=== PATIENT | female | born 1965 | race Caucasian/White ===

== ENCOUNTER → 2022-07-12 10:47 | Outpatient (CLI) | payer OTHER, SELFPAY ==
[2022-07-12 12:15] LABS: Free T4, Direct Thyroxine 0.68 ng/dL (0.78-2.19)
[2022-07-12 12:29] LABS: Thyroid Stimulating Hormone 5.21 uIU/mL (0.47-4.68)
== END ==
PROVIDERS: PCP Registered Nurse Diabetes Educator; Referring Provider Nurse Practitioner Family; Visit Provider Nurse Practitioner Family
DX: E03.9 Hypothyroidism, unspecified (principal)
CPT/HCPCS: 36415; 84439; 84443

== ENCOUNTER → 2022-08-09 09:57 | Outpatient (CLI) | payer OTHER, SELFPAY ==
[2022-08-09 11:21] LABS: Free T4, Direct Thyroxine 0.59 ng/dL (0.78-2.19)
[2022-08-09 11:35] LABS: Thyroid Stimulating Hormone 2.22 uIU/mL (0.47-4.68)
== END ==
PROVIDERS: Referring Provider Nurse Practitioner Family; Visit Provider Nurse Practitioner Family
DX: E03.9 Hypothyroidism, unspecified (principal)
CPT/HCPCS: 36415; 84439; 84443

== ENCOUNTER → 2022-09-24 10:33 | Outpatient (CLI) | payer OTHER, SELFPAY ==
[2022-09-24 11:54] LABS: Free T4, Direct Thyroxine 0.66 ng/dL (0.78-2.19)
[2022-09-24 12:08] LABS: Thyroid Stimulating Hormone 1.72 uIU/mL (0.47-4.68)
== END ==
PROVIDERS: PCP Registered Nurse Diabetes Educator; Referring Provider Nurse Practitioner Family; Visit Provider Nurse Practitioner Family
DX: E03.9 Hypothyroidism, unspecified (principal)
CPT/HCPCS: 36415; 84439; 84443

== ENCOUNTER → 2022-10-25 10:35 | Outpatient (CLI) | payer OTHER, SELFPAY ==
[2022-10-25 13:36] LABS: Free T4, Direct Thyroxine 0.64 ng/dL (0.78-2.19)
[2022-10-25 13:50] LABS: Thyroid Stimulating Hormone 1.66 uIU/mL (0.47-4.68)
== END ==
PROVIDERS: PCP Registered Nurse Diabetes Educator; Referring Provider Nurse Practitioner Family; Visit Provider Nurse Practitioner Family
DX: E03.9 Hypothyroidism, unspecified (principal); R79.89 Other specified abnormal findings of blood chemistry
CPT/HCPCS: 36415; 84439; 84443

== ENCOUNTER → 2023-02-14 09:42 | Outpatient (CLI) | payer OTHER, SELFPAY ==
--- NOTE | 2023-02-14 09:43 | DI.RAD.S_ITS ---
PROCEDURE: XR KNEE RT 3V INDICATIONS: eval R knee pain TECHNIQUE: 3 views of the knee were acquired. COMPARISON: None. FINDINGS: Bones: No fractures or dislocations. Moderate tricompartmental osteoarthritis is seen more notably in lateral femoral tibial compartment with joint space narrowing, subchondral sclerosis and prominent marginal osteophyte formation. No patellar subluxation. No suspicious bony lesions. Soft tissues: Small suprapatella joint effusion. No suspicious soft tissue calcifications. IMPRESSION: Moderate tricompartmental osteoarthritis and small joint effusion. No fracture or dislocation. Dictated by: Antolin Valle M.D. on 02/14/2023 at 11:21 Approved by: Antolin Valle M.D. on 02/14/2023 at 11:26
== END ==
PROVIDERS: PCP Registered Nurse Diabetes Educator; Referring Provider Registered Nurse Diabetes Educator; Visit Provider Registered Nurse Diabetes Educator
DX: M25.561 Pain in right knee (principal); G89.29 Other chronic pain; M17.11 Unilateral primary osteoarthritis, right knee; M25.461 Effusion, right knee
CPT/HCPCS: 73562

== ENCOUNTER → 2023-07-01 16:19 | Outpatient (CLI) | payer OTHER, SELFPAY ==
--- NOTE | 2023-07-01 16:20 | DI.MRI.S_ITS ---
PROCEDURE: MR ANGIO NECK W CON INDICATIONS: Pulsatile tinnitus, right ear TECHNIQUE: Axial and sagittal TruFISP through the neck. Coronal dynamic MRA after the administration of contrast in the arterial and venous phases, with rotating 3-dimensional maximum intensity projection (MIP) reformats constructed from subtraction images. COMPARISON: [facility], , MR ANGIO HEAD WO CON, 07/01/2023, 17:05. FINDINGS: Image quality: This examination is limited by involuntary motion artifact. Carotid system: Great vessels demonstrate a conventional anatomy as they arise from the aortic arch. The origins of the common carotid arteries appear normal. The calibers and courses of the common carotid arteries are likewise normal. The carotid bifurcations appear normal bilaterally. The internal carotid arteries are widely patent up to the [place]. Posterior circulation: The origins of the vertebral arteries are unremarkable. The more superior portions of the vertebral arteries demonstrate normal course and caliber. Vertebral arteries join to form a normal appearing basilar artery. Miscellaneous: Subclavian arteries are patent throughout. Pre-contrast images through the neck demonstrate no soft tissue abnormalities. IMPRESSION: Normal neck MR angiogram, without a cause of right-sided pulsatile tinnitus identified. Any quantitative measurements of stenosis were performed using NASCET criteria. Dictated by: Wally Cabral M.D. on 07/04/2023 at 10:59 Approved by: Wally Cabral M.D. on 07/04/2023 at 11:00
--- NOTE | 2023-07-01 16:20 | DI.MRI.S_ITS ---
PROCEDURE: MR ANGIO HEAD WO CON INDICATIONS: Pulsatile tinnitus, right ear TECHNIQUE: Noncontrast axial 3-D [id number] MR angiogram, with 3-dimensional maximum intensity projection (MIP) reformats of the internal carotid arteries and posterior circulation then performed. COMPARISON: [facility], , MR ANGIO NECK W CON, 07/01/2023, 17:20. FINDINGS: Image quality: Excellent. Anterior circulation: Intracranial internal carotid arteries demonstrate normal size and intraluminal flow signal. The flow within the paired anterior cerebral arteries is normal and symmetric. The flow within the middle cerebral arteries is normal and symmetric. The anterior communicating artery is seen. No stenoses, occlusions, or aneurysms. Posterior circulation: Visualized portions of the vertebral arteries demonstrate normal caliber, and join to form a normal appearing basilar artery. There is a prominent left posterior communicating artery seen, with an accompanying diminutive left P1 segment. This is attributed to a type origin of the right posterior cerebral artery, which is considered to be a normal developmental variant of typically no clinical consequence. The flow within the posterior cerebral arteries is normal and symmetric. No aneurysms are seen. In this patient with this given history, scrutiny is given to vascular loops posteriorly. There is an arterial branch seen adjacent to the left internal auditory canal, as on series 5, image 80. IMPRESSION: No imaging explanation is found for this patient's presenting symptoms. There is an arterial branch can be seen adjacent to the LEFT internal auditory canal, which is considered to be an incidental finding in this patient with a presenting history of pulsatile RIGHT tinnitus. Dictated by: Wally Cabral M.D. on 07/04/2023 at 10:57 Approved by: Wally Cabral M.D. on 07/04/2023 at 10:59
== END ==
PROVIDERS: PCP Registered Nurse Diabetes Educator; Referring Provider Otolaryngology; Visit Provider Otolaryngology
DX: H93.A1 Pulsatile tinnitus, right ear (principal)
CPT/HCPCS: 70544; 70548; A9579

== ENCOUNTER → 2023-11-09 17:23 | Outpatient (CLI) | payer OTHER, SELFPAY ==
[2023-11-09 17:56] LABS: Add Manual Diff / Slide Review NO; Basophils Absolute Auto 200 /uL (0-100); Basophils Percent Auto 3.9 % (0-2); Eosinophils Absolute Auto 200 /uL (0-450); Hemoglobin 14.2 g/dL (12.0-16.0); Lymphocytes Absolute Auto 1400 /uL (1100-4500); Lymphocytes Percent Auto 32.3 % (25-40); Mean Corpuscular HGB Conc 33.8 % (30-36); Mean Corpuscular Volume 91.7 fL (80-100); Monocytes Absolute Auto 600 /uL (0-900); Monocytes Percent Auto 12.4 % (3-14); Neutrophils Absolute Auto 2100 /uL (1500-7000); Neutrophils Percent Auto 47.4 % (50-75); Platelet Count 288 X10^3/uL (150-400); Red Blood Cell Count 4.58 X10^6/uL (4.0-5.2); Red Cell Distribution Width 13.6 % (11.6-14.8); White Blood Cell Count 4.4 X10^3/uL (4.5-11.0)
[2023-11-09 18:20] LABS: Alanine Aminotransferase 86 IU/L (<35); Albumin 4.5 g/dL (3.5-5.0); Albumin Globulin Ratio 1.5 (1.0-2.8); Alkaline Phosphatase 60 U/L (38-126); Aspartate Aminotransferase 33 IU/L (14-36); BUN Creatinine Ratio 22.6 (6-22); Bilirubin Total 0.4 mg/dL (0.2-1.3); Blood Urea Nitrogen 21 mg/dL (7-17); Calcium 9.9 mg/dL (8.4-10.2); Carbon Dioxide 29 mmol/L (22-32); Chloride 106 mmol/L (98-107); Estimated Glomerular Filt Rate > 60 mL/min (>60); Globulin 3.1 g/dL (1.7-4.1); Glucose 94 mg/dL (80-110); HEMOLYSIS < 15 (0-50); Lipase 96 U/L (23-300); Potassium 4.9 mmol/L (3.4-5.1); Sodium 139 mmol/L (137-145); Total Protein 7.6 g/dL (6.3-8.2)
[2023-11-09 19:05] LABS: Appearance Urine UA CLEAR; Bilirubin Urine UA NEGATIVE (NEGATIVE); Color Urine UA YELLOW; Glucose Urine UA NEGATIVE (Negative); Ketones Urine UA NEGATIVE (NEGATIVE); Leukocyte Esterase Urine UA 1+ (NEGATIVE); Nitrite Urine UA NEGATIVE (Negative); Occult Blood Urine UA NEGATIVE (Negative); Protein Urine UA NEGATIVE (Negative); Specific Gravity Urine UA <=1.005 (1.000-1.035); Urobilinogen Urine UA 0.2 E.U./dL (0.2)
[2023-11-09 19:16] LABS: Bacteria Urine Occasional (0-1); Culture Indicated Urine Specimen Cultured; RBC Urine None Seen (0-5/HPF); Squamous Epithelial Cell Urine None Seen (0-5/HPF); Urine Volume 10mL (spun); WBC Urine 0-1/HPF (0-5/HPF)
[2023-11-09 20:23] LABS: Amylase 62 U/L (30-110)
== END ==
PROVIDERS: PCP Registered Nurse Diabetes Educator; Referring Provider Registered Nurse Diabetes Educator; Visit Provider Registered Nurse Diabetes Educator
DX: R10.11 Right upper quadrant pain (principal); R11.10 Vomiting, unspecified
CPT/HCPCS: 36415; 80053; 81001; 82150; 83690; 85025; 87086

== ENCOUNTER → 2023-11-18 07:14 | Outpatient (CLI) | payer OTHER, SELFPAY ==
--- NOTE | 2023-11-18 07:15 | DI.US.S_ITS ---
PROCEDURE: US ABDOMEN LIMITED INDICATIONS: eval RUQ pain TECHNIQUE: Real-time scanning was performed of the abdominal and retroperitoneal organs, with image documentation. COMPARISON: None. FINDINGS: Liver: Liver is normal in size and homogeneous in echotexture. Gallbladder: There is no gallstone. No gallbladder wall thickening or pericholecystic fluid. No sonographic Cardenas sign. Biliary ducts: Intrahepatic bile ducts are non-dilated. Extrahepatic bile duct caliber measures 2 mm. Normal is 6-7 mm or less in diameter, or 10 mm or less post-cholecystectomy. Pancreas: Visualized portions of the pancreas are sonographically normal. Miscellaneous: No free abdominal fluid. IMPRESSION: Unremarkable ultrasound examination of right upper quadrant abdomen. Dictated by: Antolin Valel M.D. on 11/18/2023 at 10:19 Approved by: Antolin Valle M.D. on 11/18/2023 at 10:20
== END ==
LOC: US 07:15
PROVIDERS: PCP Registered Nurse Diabetes Educator; Referring Provider Registered Nurse Diabetes Educator; Visit Provider Registered Nurse Diabetes Educator
DX: R10.11 Right upper quadrant pain (principal); R11.10 Vomiting, unspecified
CPT/HCPCS: 76705

== ENCOUNTER → 2023-12-26 12:42 | Outpatient (CLI) | payer OTHER, SELFPAY ==
[2023-12-26 13:56] LABS: Alanine Aminotransferase 20 IU/L (<35); Albumin 4.4 g/dL (3.5-5.0); Albumin Globulin Ratio 1.8 (1.0-2.8); Alkaline Phosphatase 55 U/L (38-126); Aspartate Aminotransferase 21 IU/L (14-36); Bilirubin Total 0.6 mg/dL (0.2-1.3); Bilirubin Unconjugated 0.2 mg/dL (0.0-1.1); Globulin 2.4 g/dL (1.7-4.1); HEMOLYSIS < 15 (0-50); Total Protein 6.8 g/dL (6.3-8.2)
== END ==
PROVIDERS: PCP Registered Nurse Diabetes Educator; Referring Provider Registered Nurse Diabetes Educator; Visit Provider Registered Nurse Diabetes Educator
DX: R74.8 Abnormal levels of other serum enzymes (principal)
CPT/HCPCS: 36415; 80076

== ENCOUNTER → 2024-05-14 09:25 | Outpatient (CLI) | payer OTHER, SELFPAY ==
--- NOTE | 2024-05-14 09:26 | DI.RAD.S_ITS ---
PROCEDURE: XR THORACIC SPINE 3V INDICATIONS: eval chronic neck and upper back pain with paresthesia BUE TECHNIQUE: 3 views of the thoracic spine were acquired. COMPARISON: None. FINDINGS: Bones: Mild vertebral body height loss of T7. Multilevel degenerative disc disease. Soft tissues: No paravertebral stripe thickening. IMPRESSION: Mild vertebral body height loss of T7, which could represent a chronic compression deformity or age related vertebral body height loss. Mild, multilevel degenerative disc disease. Dictated by: Juan A Torres M.D. on 05/14/2024 at 11:22 Approved by: Juan A Torres M.D. on 05/14/2024 at 11:23
--- NOTE | 2024-05-14 09:26 | DI.RAD.S_ITS ---
PROCEDURE: XR CERVICAL SPINE 4V OR 5V INDICATIONS: eval chronic neck and upper back pain with paresthesia BUE TECHNIQUE: 5 views of the cervical spine acquired. COMPARISON: None. FINDINGS: Bones: No fractures or dislocations to the T1 level. Moderate stenosis of the bilateral neural foraminal at C5-6. Moderate disc height loss at C5-6. Mild disc height loss at remaining levels. Soft tissues: No prevertebral soft tissue swelling. IMPRESSION: Moderate degenerative disc disease at C5-6, resulting in moderate bilateral neural foraminal narrowing. Dictated by: Juan A Torres M.D. on 05/14/2024 at 11:21 Approved by: Juan A Torres M.D. on 05/14/2024 at 11:22
== END ==
PROVIDERS: PCP Registered Nurse Diabetes Educator; Referring Provider Registered Nurse Diabetes Educator; Visit Provider Registered Nurse Diabetes Educator
DX: M51.34 Other intervertebral disc degeneration, thoracic region (principal); M50.122 Cervical disc disorder at C5-C6 level with radiculopathy; M48.02 Spinal stenosis, cervical region; M54.9 Dorsalgia, unspecified; G89.29 Other chronic pain
CPT/HCPCS: 72050; 72072

== ENCOUNTER → 2024-06-01 12:16 | Outpatient (CLI) | payer OTHER, SELFPAY ==
--- NOTE | 2024-06-01 12:17 | DI.MRI.S_ITS ---
PROCEDURE: MR THORACIC SPINE WO CON INDICATIONS: eval chronic neck and upper back pain TECHNIQUE: Noncontrast sagittal T1 spine echo and T2 fast spin echo, sagittal STIR, and T2 fast spin echo through the thoracic spine. COMPARISON: [facility], CR, XR THORACIC SPINE 3V, 05/14/2024, 9:30. FINDINGS: Image quality: Excellent. Alignment and Curvature: Mild dextrocurvature. Bone Marrow: Multilevel degenerative endplate changes. Marrow is of normal overall signal. No acute vertebral body compression fractures. Spinal Cord: Small syrinx versus prominent central canal involving the lower thoracic cord spanning T10 through T12 measuring up to 3 x 2 mm in maximal transverse dimension. Visualized spinal cord is otherwise normal in size and signal. Paraspinous Soft Tissues: No paravertebral masses. Miscellaneous: Multilevel disc desiccation height loss with minimal posterior disc bulges. On axial images, central canal and foramina appear widely patent at all scanned levels. IMPRESSION: 1. Mild degenerative changes without significant central canal or neural foraminal stenosis. 2. Small syrinx versus prominent central canal involving the lower thoracic cord spanning T10 through T12 measuring up to 3.2 mm in maximal transverse dimension. Dictated by: Uriel Navarro M.D. on 06/01/2024 at 19:23 Approved by: Uriel Navarro M.D. on 06/01/2024 at 19:34
--- NOTE | 2024-06-01 12:17 | DI.RAD.S_ITS ---
PROCEDURE: XR DEXA AXIAL SKELETON INDICATIONS: eval, postmenopausal estrogen deficiency, compression fx COMPARISON: None. FINDINGS: Lumbar Spine: Bone mineral density 1.036 g/cm2, T score -0.1 Left Femoral Neck: Bone mineral density 0.721 g/cm2, T score -1.1 Left Hip: Bone mineral density 0.88 g/cm2, T score -0.5. Fracture Risk Calculation (when applicable): 10-year fracture risk of a major osteoporotic fracture 13 percent and of a hip fracture 0.8 percent. (T score greater or equal to -1.0 to: NORMAL) (T score from -1.1 to -2.4: OSTEOPENIA) (T score less than or equal to -2.5: OSTEOPOROSIS) IMPRESSION: Minimal osteopenia in the left femoral neck. Follow-up guidelines as follows: Osteoporosis: Consider a repeat DEXA and Vertebral Fracture Assessment (VFA) exam in 2 years or sooner if medically necessary, to reassess this patient's status. Osteopenia: Consider a repeat DEXA in 2-3 years to reassess this patient's status, or if there is a new clinical indication. Normal: Consider a repeat DEXA in 5 years or sooner, or if there is a new clinical indication. All treatment decisions require clinical judgment and consideration of individual patient factors, including patient preferences, comorbidities, previous drug use, risk factors not captured in the FRAX model (e.g., frailty, falls, vitamin D deficiency, increased bone turnover, interval significant decline in bone density ) and possible under- or over-estimation of fracture risk by FRAX. In addition, the NOF Guide recommends that FDA-approved medical therapies be considered in postmenopausal women and men age >= 50 years with a: * Hip or vertebral (clinical or morphometric) fracture * T-score of <=-2.5 at the spine or hip * Ten-year fracture probability by FRAX of >= 3% for hip fracture or >=20% for major osteoporotic fracture. Dictated by: Geovanna Wills M.D. on 06/02/2024 at 17:26 Approved by: Geovanna Wills M.D. on 06/02/2024 at 17:27
--- NOTE | 2024-06-01 12:17 | DI.MRI.S_ITS ---
PROCEDURE: MR CERVICAL SPINE WO CON INDICATIONS: eval chronic neck and upper back pain TECHNIQUE: Noncontrast sagittal T1 spin echo and T2 fast spin echo, sagittal STIR, foraminal oblique sagittal T2 fast spin echo, and axial gradient echo or T2 fast spin echo through the cervical spine. COMPARISON: None. FINDINGS: Image quality: Excellent. Alignment and Curvature: Straightening of the normal cervical lordosis. Bone Marrow: Mild degenerative endplate changes at C6-C7. Marrow demonstrates normal overall signal. Spinal Cord: Visualized spinal cord has normal size and signal. No cerebellar tonsillar herniation. Paraspinous Soft Tissues: No paravertebral masses. Prevertebral soft tissues are normal in thickness. C2-C3: Normal appearance. C3-C4: Mild disc desiccation and posterior disc osteophyte complex. No significant central canal or neural foraminal stenosis. C4-C5: Mild disc desiccation and posterior disc osteophyte complex. Facet and uncovertebral arthropathy. No central canal stenosis. Mild right and no left neural foraminal stenosis. C5-C6: Disc desiccation. Mild facet and uncovertebral arthropathy. No significant central canal or neural foraminal stenosis. C6-C7: Disc desiccation and moderate height loss. Minimal posterior disc osteophyte complex. Facet uncovertebral arthropathy. No central canal stenosis. Severe bilateral neural foraminal stenosis. C7-T1: No central canal or neural foraminal stenosis. IMPRESSION: 1. Multilevel degenerative changes of the cervical spine, most pronounced at C6-C7. 2. No significant central canal stenosis throughout. 3. Severe bilateral neural foraminal stenosis at C6-C7. Dictated by: Uriel Navarro M.D. on 06/01/2024 at 20:33 Approved by: Uriel Navarro M.D. on 06/01/2024 at 20:45
== END ==
PROVIDERS: PCP Registered Nurse Diabetes Educator; Referring Provider Registered Nurse Diabetes Educator; Visit Provider Registered Nurse Diabetes Educator
DX: S22.000A Wedge compression fracture of unspecified thoracic vertebra, initial encounter for closed fracture (principal); Z78.0 Asymptomatic menopausal state; M54.9 Dorsalgia, unspecified; M54.12 Radiculopathy, cervical region; G89.29 Other chronic pain; M47.814 Spondylosis without myelopathy or radiculopathy, thoracic region; M48.04 Spinal stenosis, thoracic region; M50.323 Other cervical disc degeneration at C6-C7 level; M48.02 Spinal stenosis, cervical region; M85.852 Other specified disorders of bone density and structure, left thigh
CPT/HCPCS: 72141; 72146; 77080

== ENCOUNTER → 2024-07-13 12:11 | Outpatient (CLI) | payer OTHER, SELFPAY ==
--- NOTE | 2024-07-13 12:13 | DI.MRI.S_ITS ---
PROCEDURE: MR LUMBAR SPINE WO CON INDICATIONS: eval LBP TECHNIQUE: Noncontrast sagittal T1 spin echo and T2 fast echo, sagittal STIR, and T2 fast spin echo through the lumbar spine. In cases with scoliosis, additional coronal T2 fast spin echo may be performed. COMPARISON: None. FINDINGS: Image quality: Excellent. Alignment and Curvature: There is normal bony alignment. Transitional vertebral body anatomy with sacralization of the L5 vertebral body. Bone Marrow: Degenerative endplate changes, most pronounced at L4-5. Marrow is of normal overall signal. No acute vertebral body compression fractures. Spinal Cord: Partially visualized syrinx versus prominent central canal within the lower thoracic spinal cord. Conus medullaris terminates at the L1 level. Visualized cord demonstrates normal signal and size. Paraspinous Soft Tissues: No paravertebral masses. T12-L1: Disc desiccation and mild height loss. Mild disc bulge. No central canal or neural foraminal stenosis. L1-L2: Disc desiccation and mild height loss. Mild disc bulge. No central canal or neural foraminal stenosis. L2-L3: Disc desiccation and mild height loss. Diffuse disc bulge. Facet arthropathy and thickening of ligamentum flavum. Mild central canal stenosis. Moderate left and mild right neural foraminal stenosis. L3-L4: No disc desiccation and mild diffuse disc bulge. Facet arthropathy. No central canal or neural foraminal stenosis. L4-L5: Disc desiccation and moderate height loss. Diffuse disc bulge. Facet arthropathy. No significant central canal stenosis. Moderate right and mild left neural foraminal stenosis. L5-S1: Transitional level. No central canal or neural foraminal stenosis. IMPRESSION: 1. Multilevel degenerative changes of the lumbar spine as described above. 2. Mild central canal stenosis at L2-L3. 3. Moderate neural foraminal stenosis on the left at L2-L3 and right at L4-5. 4. Transitional vertebral body anatomy with sacralization of the L5 vertebral body. Recommend correlation with plain film prior to any intervention. Dictated by: Uriel Navarro M.D. on 07/13/2024 at 14:25 Approved by: Uriel Navarro M.D. on 07/13/2024 at 14:46
== END ==
PROVIDERS: PCP Registered Nurse Diabetes Educator; Referring Provider Registered Nurse Diabetes Educator; Visit Provider Registered Nurse Diabetes Educator
DX: M47.26 Other spondylosis with radiculopathy, lumbar region (principal); M51.360 Other intervertebral disc degeneration, lumbar region with discogenic back pain only; M48.061 Spinal stenosis, lumbar region without neurogenic claudication; M43.27 Fusion of spine, lumbosacral region; G89.29 Other chronic pain
CPT/HCPCS: 72148

== ENCOUNTER 2024-08-13 11:53 | Day surgery (SDC) | payer OTHER, SELFPAY ==
--- NOTE | 2024-08-13 | PATH_ITS ---
[facility] Accession Number: [id number] No. of containers..02 Tissue . 01 Material submitted: . PART A: colon - POLYP @ 35CM PART B: rectum - RECTAL POLYP . 01 Diagnosis: A. COLON AT 35 CM, POLYPECTOMY: Colonic mucosa with no significant diagnostic abnormality, consistent with polypoid redundancy. Negative for dysplasia, or malignancy. - B. RECTUM, POLYPECTOMY: Hyperplastic polyp. [facility] 08/15/2024 1111 Local . 01 Electronically signed: . Onel Whitman MD, Pathologist NPI- [id number] . 01 Gross description: . Part A: POLYP @ 35CM: Received in formalin is 1 fragment(s) of bloom, soft tissue measuring 0.3 x 0.3 x 0.2 cm submitted entirely in 1 cassette(s) Part B: RECTAL POLYP: Received in formalin is 1 fragment(s) of bloom, soft tissue measuring 0.6 x 0.2 x 0.1 cm submitted entirely in 1 cassette(s) /MARY 08/14/2024 0136 Local . 01 Pathologist provided ICD-10: Z12.11 . 01 CPT . 309623, [id number] Specimen Comment: A courtesy copy of this report has been sent to [phone] Performed at: [address] [address] [address], [place], [place] [id number] MD Austen Lockett MD Phone: [phone]
[2024-08-13 12:13] VITALS: BP 155/104; PULSE 87; RESP 16; TEMP 36.4; O2SAT 100
--- NOTE | 2024-08-13 12:25 | P.HP_ITS ---
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 Wears contact lenses Hearing loss (~2013) Sleep apnea (~2022) Allergies Foot pain (~2019) Chronic back pain (~2018) Mumps Chicken pox Fibrocystic breast disease (~2010) Irritable bowel syndrome (~1990) Hemorrhoid (~1990) GERD (gastroesophageal reflux disease) Colon polyps (~2013) Cardiac arrhythmia (~1996) Acquired hypothyroidism (~2009) Essential hypertension BPPV (benign paroxysmal positional vertigo) (~2010) Tinnitus, bilateral (~2008) Surgical History Anesthesia History of varicose vein ligation (~1994) Family History Father Diabetes mellitus Congestive heart failure Sleep apnea Hypothyroidism Mother Hypothyroidism Polymyalgia Brother Mental health problem Alcoholism Brother Hypothyroidism Sister Hypothyroidism Sleep apnea Grandfather Cancer Grandmother Cancer Hypothyroidism Grandfather Cancer Grandmother Hypothyroidism Social History Smoking Status: Never smoker Meds Home Medications and Allergies Home Medications Medication Instructions Recorded Confirmed Type acetaminophen 500 mg tablet 1,000 mg PO DAILY 07/08/22 06/13/24 History (Tylenol Extra Strength) cholecalciferol (vitamin D3) 125 125 mcg PO DAILY 07/08/22 06/13/24 History mcg (5,000 unit) capsule ibuprofen 200 mg tablet 800 mg PO DAILY 07/08/22 06/13/24 History magnesium 200 mg tablet 200 mg PO DAILY 07/08/22 06/13/24 History meclizine 25 mg tablet 25 mg PO DAILY PRN 01/10/23 06/13/24 History cetirizine 10 mg tablet (Zyrtec) 10 mg PO DAILY PRN 03/28/23 06/13/24 History calcium carbonate 500 mg PO DAILY 06/13/24 06/13/24 History estradiol 10 mcg vaginal tablet 10 mcg vaginal DAILY #30 tabs 06/13/24 06/13/24 Rx (Vagifem) methocarbamol 750 mg tablet 750 mg PO QID PRN muscle spasm 06/13/24 06/13/24 Rx #180 tabs omega-3 fatty acids 500 mg capsule 500 mg PO DAILY 06/13/24 06/13/24 History sodium,potassium,mag sulfates 17.5 See Rx Instructions PO .COMPLEX 07/30/24 Rx gram-3.13 gram-1.6 gram oral soln #354 mL (Suprep Bowel Prep Kit) Allergies Allergy/AdvReac Type Severity Reaction Status Date / Time Sulfa (Sulfonamide Allergy Severe Headache Verified 08/13/24 12:07 Antibiotics) Exam Narrative Exam Narrative: Oropharynx free of lesions Chest clear to auscultation percussion Cardiac exam reveals no S3 or murmur Assessment & Plan Assessment & Plan narrative: History of colon polyps last colonoscopy 2017 need for follow-up colonoscopy. Risks, benefits, alternatives have been explained. Time-Based Coding :: [TOTAL MINUTES] spent with patient and on the chart (including review of chart, obtaining history, exam, reviewing outside data, placing orders, documenting exam and treatment plan, and counseling patient) on [DATE]. [employer]ing Support Specialist Document charge(s): No
--- NOTE | 2024-08-13 12:27 | P.OP.COLON_ITS ---
Operative Date/Time/Diagnoses Date of procedure: 08/13/24 Pre-op diagnosis: See indication and findings Procedure & Clinicians Study performed: Colonoscopy Same procedure as scheduled: Yes Indications: History of colon polyps Surgeon: Magy Michael Procedure Notes Procedure in detail: After informed consent was obtained the patient was placed in left lateral decubitus position. The video colonoscope was placed in the rectum slowly advanced cecum. Preparation was good. On slow withdrawal mucosa was carefully examined. The scope was removed. The patient tolerated procedure well. Blood loss none Complications none Sedation mac Findings 1. Normal esophagus with the exception of the GE junction where there was a mild Schatzki's ring. This was best visualized on retroflexion. On withdrawal, Savary dilation was performed to 51 Tam[place] without difficulty. 2. Intense striped erythema in the stomach. Biopsies taken to rule out watermelon stomach or Helicobacter 2. Normal duodenal bulb and sweep Chelsie will be in touch with me in the next 2-4 weeks to let me know how she is doing. I expect this will resolve her difficulty swallowing nicely. We will be in touch regarding the pathology
[2024-08-13] MEDS: LACTATED RINGERS 1,000 ML 42 ML IV (12:32)
[2024-08-13 13:22] VITALS: BP 111/74; PULSE 65; RESP 14; TEMP 36.2; O2SAT 95
[2024-08-13 13:27] VITALS: BP 115/80; PULSE 78; RESP 18; O2SAT 98
--- NOTE | 2024-08-13 13:27 | SUR.PHASEI ---
EKG order by Deepa BERRY for slight irregular HR.
[2024-08-13 13:32] VITALS: BP 115/75; PULSE 78; RESP 20; O2SAT 97
--- NOTE | 2024-08-13 13:36 | EKG_ITS ---
[address] [address] Test Date: 2024-08-13 Pat Name: Chelsie Betts Department: Room: Gender: Female Roller Pneumatic: Brandy LING : 1965 Requested By: Order Number: [id number] Reading MD: Pablo Frazier MD Measurements Intervals [place] Rate: 67 P: 56 VA: 180 QRS: -8 QRSD: 88 T: 16 QT: 432 QTc: 456 Interpretive Statements Sinus rhythm with marked sinus arrhythmia Electronically Signed On 08-13-2024 16:53:19 PDT by Pablo Frazier MD
[2024-08-13 13:38] VITALS: BP 121/77; PULSE 64; RESP 14; TEMP 37; O2SAT 98
--- NOTE | 2024-08-13 13:44 | SUR.PHASEI ---
4522 Dr Michael and Deepa WALKER at bedside. EKG sinus arrhythmia. Pt asymptomatic and ok for DC and to f/u with PCP.
[2024-08-13 13:52] VITALS: BP 152/95; PULSE 56; RESP 12; TEMP 36.8; O2SAT 98
--- NOTE | 2024-08-13 14:04 | PM.OP.COLON ---
Operative Date/Time/Diagnoses Date of procedure: 08/13/24 Pre-op diagnosis: See indication and findings Procedure & Clinicians Study performed: Colonoscopy Same procedure as scheduled: No Indications: History of colon polyps Surgeon: Magy Michael Procedure Notes Procedure in detail: After informed consent was obtained the patient was placed in left lateral decubitus position. The video colonoscope was introduced the rectum slowly advanced cecum. Preparation was good. On slow withdrawal mucosa was carefully examined. The scope was removed. The patient tolerated the procedure well. Blood loss none Complications none Sedation mac Findings 1. 5 mm polyp in the proximal colon Jumbo biopsy removed completely 2. 4 mm polyp in the rectum Jumbo biopsied and removed completely 3. Otherwise negative colonoscopy to cecum Will be in touch regarding pathology results but she will probably require follow-up colonoscopy in 5-7 years.
== END 2024-08-13 14:15 | disposition home or self-care (01) ==
PROVIDERS: PCP Registered Nurse Diabetes Educator; Referring Provider Internal Medicine Gastroenterology; Visit Provider Internal Medicine Gastroenterology
PROC: 0DJD8ZZ Inspection of Lower Intestinal Tract, Via Natural or Artificial Opening Endoscopic (ICD-10-PCS; CPT 45378; principal; 2024-08-13 13:00)
DX: Z12.11 Encounter for screening for malignant neoplasm of colon (principal); Z86.0100 Personal history of colon polyps, unspecified; K62.1 Rectal polyp
CPT/HCPCS: 45380; 93005; 93010; J2704

== ENCOUNTER → 2024-09-03 14:04 | Outpatient (CLI) | payer OTHER, SELFPAY | LOC: CAR 14:05 | PROVIDERS: PCP Registered Nurse Diabetes Educator; Referring Provider Registered Nurse Diabetes Educator; Visit Provider Registered Nurse Diabetes Educator | DX: R00.2 Palpitations (principal) | CPT/HCPCS: 93242; 93798 ==

== ENCOUNTER → 2025-01-09 13:40 | Outpatient (CLI) | payer OTHER, SELFPAY ==
--- NOTE | 2025-01-09 13:42 | DI.ECHO.S_ITS ---
[facility]+ [facility] : : [address] : : [place] : : [id number] : : Phone: [phone] Echocardiogram Report + + :Name: VANDA BHATT Study Date: 01/09/2025 Height: 67 in : :[facility] ReadingLocation: Weight: 174 lb : : Gender: Female BSA: 1.9 m2 : :: 1965 Age: 59 yrs BP: 106/75 mmHg: :Reason For Study: SVT : :Ordering Physician: PONCHO VALLE Performed By: Leonides English : :Referring: PONCHO VALLE : + + Interpretation Summary - Borderline LV contractility with EF 50-55%. No WMA. No LVH. Normal diastolic function. - Normal RV contractility. - Normal chamber sizes. - No significant valvular abnormalities. - No obvious intracardiac shunts. - No obvious intracardiac masses/thrombi. - No hemodynamically significant pericardial effusion. - Low right sided filling pressures. Conclusion: Low normal LV systolic function without significant valvular abnormalities. Procedure: A two-dimensional transthoracic echocardiogram with color flow and Doppler was performed. The study quality was technically adequate. There is no prior echocardiogram noted for this patient. The heart rate ranged between 59-63 bpm during the study. Left Ventricle: The left ventricle is normal in size and wall thickness. The ejection fraction is estimated to be 50-55%. Left ventricular systolic function is low normal. There are no focal wall motion abnormalities. Normal diastolic function. Right Ventricle: The right ventricle is normal in size and function. Atria: The left atrial size is normal. Right atrial size is normal. There is no Doppler evidence for an interatrial shunt. Mitral Valve: The mitral valve leaflets appear to open well. There is no mitral valve stenosis. There is trace mitral regurgitation. Aortic Valve: The aortic valve is trileaflet. The aortic valve opens well. There is no aortic valve stenosis. There is trace aortic regurgitation. Tricuspid Valve: The tricuspid valve is not well visualized, but is grossly normal. There is trace tricuspid regurgitation. The right ventricular systolic pressure is estimated to be at least 20 mmHg based on an estimated right atrial pressure of 3 mm Hg. Pulmonic Valve: The pulmonic valve is not well seen, but is grossly normal. There is a trace or physiologic amount of pulmonic regurgitation. Great Vessels: The aortic root is normal size. The ascending aorta is normal in size. The aortic arch is normal in size. The IVC is of normal diameter and collapses greater than 50% with a sniff. This suggests a low right atrial pressure of 3 mm Hg. Pericardium/ Pleura There is no pericardial effusion. MMode/2D Measurements & Calculations LVIDd: 5.3 cm LVOT diam: 2.3 cm LVIDs: 3.4 cm Ao root diam: 3.8 cm FS: 37.0 % asc Aorta Diam: 3.9 cm EPSS: 0.81 cm Ao Arch Diam (Prox Trans): 2.5 cm IVSd: 0.87 cm LVPWd: 0.88 cm LV shepherd. diameter/BSA (cm/m^2): 2.8 LV sys. diameter/BSA (cm/m^2): 1.8 LA A2 area: 14.9 cm2 RA long axis: 5.1 cm LA A4 area: 17.9 cm2 RA area: 10.5 cm2 LA length (vol): 5.3 cm RA vol: 18.6 ml LA vol: 42.4 ml RA : 9.8 ml/m2 LA vol index: 22.2 ml/m2 IVC diam: 1.7 cm RVD1 (basal): 2.4 cm RVD2 (mid): 2.2 cm TAPSE: 2.8 cm Doppler Measurements & Calculations Ao V2 max: 133.7 cm/sec LVOT Max Franki: 103.9 cm/sec Ao V2 mean: 83.9 cm/sec LV V1 max P.3 mmHg Ao max P.1 mmHg LV V1 VTI: 17.8 cm Ao mean P.4 mmHg PRIYANK(I,D): 3.4 cm2 Ao V2 VTI: 21.8 cm PRIYANK(V,D): 3.3 cm2 sev ratio: 0.82 PRIYANK indexed to BSA (cm^2/m^2): 1.8 MV E max franki: 71.8 cm/sec TR max frakni: 205.7 cm/sec MV A max franki: 90.9 cm/sec TR max P.9 mmHg MV E/A: 0.79 PA V2 max: 75.7 cm/sec Med Peak E' Franki: 6.0 cm/sec PA V2 mean: 47.7 cm/sec E/E' med: 11.9 PA mean P.1 mmHg Lat Peak E' Franki: 6.8 cm/sec PA pr(Accel): 25.9 mmHg E/E' lat: 10.5 E/e' average: 11.2 MV dec time: 0.25 sec SVLVOT): 74.8 ml Reading Physician:LUIS CARLOS
== END ==
LOC: ECHO 13:41
PROVIDERS: PCP Registered Nurse Diabetes Educator; Referring Provider Internal Medicine; Visit Provider Internal Medicine
DX: I47.10 Supraventricular tachycardia, unspecified (principal)
CPT/HCPCS: 93306

== ENCOUNTER → 2025-01-17 10:49 | Outpatient (CLI) | payer OTHER, SELFPAY | LOC: PHYS 10:50 | PROVIDERS: PCP Registered Nurse Diabetes Educator; Referring Provider Physical Medicine & Rehabilitation; Visit Provider Physical Medicine & Rehabilitation | DX: G56.00 Carpal tunnel syndrome, unspecified upper limb (principal); M50.123 Cervical disc disorder at C6-C7 level with radiculopathy; G95.0 Syringomyelia and syringobulbia; M47.816 Spondylosis without myelopathy or radiculopathy, lumbar region; M47.817 Spondylosis without myelopathy or radiculopathy, lumbosacral region | CPT/HCPCS: 95885; 95886; 95913 ==